=== PATIENT | female | born 1970 | race Two or more races ===

== ENCOUNTER → 2018-10-27 | Outpatient (CLI) | payer OTHER | END | disposition home or self-care (01) | LOC: RAD 501 14:39 | DX: R05 Cough (principal) ==

== ENCOUNTER 2022-11-07 10:40 | Outpatient (CLI) | payer OTHER | END 2022-11-07 10:46 | disposition home or self-care (01) | LOC: RAD 10:40 | PROVIDERS: ATTEND Obstetrics & Gynecology | DX: R19.00 Intra-abdominal and pelvic swelling, mass and lump, unspecified site (principal) ==